=== PATIENT | male | born 1980 | race Caucasian/White ===

== ENCOUNTER → 2021-04-09 | Outpatient (CLI) | payer BC ==
[~2021-04-09] MED LIST: NORCO 5-325 TA1 EACH PO
== END ==
LOC: SLEEP 15:03
DX: G47.39 Other sleep apnea (principal); G47.33 Obstructive sleep apnea (adult) (pediatric); G47.61 Periodic limb movement disorder

== ENCOUNTER 2021-06-02 13:16 | Emergency (ER) | payer BC ==
[~2021-06-02] VITALS: Ht 190.5 cm; Wt 90.7 kg
== END 2021-06-02 16:48 | disposition home or self-care (01) ==
LOC: ER1 13:16
DX: U07.1 COVID-19 (principal); Z23 Encounter for immunization; F17.200 Nicotine dependence, unspecified, uncomplicated; E78.5 Hyperlipidemia, unspecified
CPT/HCPCS: 99283; M0245